=== PATIENT | female | born 1990 | race Caucasian/White ===

== ENCOUNTER 2016-11-24 09:09 | Emergency (ER) | payer OTHER ==
[~2016-11-24] VITALS: Wt 57.2 kg
[~2016-11-24 09:09] MED LIST: ACET325T33 PO; IBUP-1542 PO; NITR-58 PO; TYL500 PO
[2016-11-24] MEDS ORDERED: BACTDS PO (09:26)
[2016-11-24] MEDS ORDERED: CEPH-443 PO (09:26)
--- NOTE | 2016-11-24 09:40 | ERD ---
ER Documentation Chief Complaint Date/Time DATE: 11/24/16 TIME: 09:31 Chief Complaint right index finger swelling for a few days. no fever HPI This is a 26-year-old female who is a [employer] employee, presents with right index finger swelling and pain for 5 days. Denies any trauma. No recent history of fever, numbness or tingling. No drainage reported. ROS All systems reviewed and are negative except as per history of present illness. Medications Home Meds Active Scripts Cephalexin* (Keflex*) 500 Mg Capsule, 500 MG PO Q6 for 7 Days, #28 CAP Prov:RIGO RUSSELL 11/24/16 Sulfamethoxazole-Trimethoprim* (Bactrim* DS) 800-160 Mg Tab, 1 TAB PO BID for 7 Days, TAB Prov:RIGO RUSSELL 11/24/16 Acetaminophen* (Tylenol*) 325 Mg Tablet, 2 TAB PO Q6 Y for PAIN AND OR ELEVATED TEMP, #20 TAB Prov:MYNOR CHAPA PA-C 04/23/16 Ibuprofen* (Motrin*) 600 Mg Tab, 600 MG PO Q6H Y for PAIN AND OR ELEVATED TEMP, #30 TAB Prov:MYNOR CHAPA PA-C 04/23/16 Nitrofurantoin Monohyd Macrocr* (Macrobid*) 100 Mg Capsr, 100 MG PO BID for 7 Days, CAP Prov:MYNOR CHAPA PA-C 04/23/16 Acetaminophen* (Tylenol*) 500 Mg Tab, 500 MG PO Q4H Y for MILD PAIN LEVEL 1-3, # 20 TAB Prov:ALON WONG DO 02/02/16 Allergies Allergies: Coded Allergies: No Known Allergy (Unverified , 02/02/16) PMhx/Soc History of Surgery: No Anesthesia Reaction: No Hx Neurological Disorder: No Hx Respiratory Disorders: No Hx Cardiac Disorders: No Hx Psychiatric Problems: No Hx Miscellaneous Medical Probl: No (PT. DENIES MEDICAL AND SURGICAL HX.) Hx Alcohol Use: No Hx Substance Use: No Hx Tobacco Use: No Physical Exam Vitals Vital Signs Date Time Temp Pulse Resp B/P Pulse Ox O2 Delivery O2 Flow Rate FiO2 11/24/16 09:11 98.6 61 20 131/82 98 Physical Exam Physical Exam CONST: Well-developed, well-nourished, in no acute distress. Nontoxic in appearance. HEENT: Atraumatic. Normal conjunctiva. EOM intact. TM intact. External ear is normal. Clear oropharnyx without erythema. No uvular deviation. Moist mucous membranes. Supple neck. No meningismus. No submandibular induration. RESP: Clear to auscultation bilaterally. No wheezing. CARDIO: Regular rate and rhythm, no murmurs. ABD: Soft, non tender, non distended. Normal bowel sounds. No McBurney's point tenderness. No guarding or rigidity. No peritoneal signs. SKIN: Approximately 0.5 cm closed abscess on the right distal phalanges of the index finger with surrounding erythema. No active drainage. No petechiae or rashes. BACK: No midline or flank tenderness. EXT: Full range of motion on right index finger. No cyanosis or edema. Distal pulses equal and bilateral. NEURO: Awake and alert, appropriate for age. Procedures/MDM EMERGENCY DEPARTMENT COURSE/MEDICAL DECISION MAKING This is a 26-year-old female who comes to the emergency room secondary to right index finger abscess. Upon examination, 0.5 cm abscess was noted without drainage. I believe procedure for an incision and drainage is not warranted at this time. Patient is afebrile. My primary diagnosis is abscess. Secondary diagnosis finger pain Differential diagnoses considered but not limited to cellulitis, dermatitis, tenosynovitis, foreign body. Pt is hemodynamically stable upon reassessment. The patient was discharged for outpatient management with a prescription for Keflex and Bactrim. Patient was instructed to return in 2 days for wound recheck. The patient was advised to followup with their PMD in 1-2 days and to return to the Emergency Department if there are any new or worsening symptoms. The patient understood and agreed with the diagnosis, treatment and plan. Patient is stable for discharge at this time. Departure Diagnosis: Primary Impression: Abscess Additional Impression: Finger pain, right Condition: Stable Patient Instructions: Abscess, Antiobiotic Treatment Only Additional Instructions: Call your primary care doctor tomorrow for an appointment during the next 1-2 days. Return to the emergency department immediately should you have any new or worsening symptoms. Take all medications as directed. RIGO RUSSELL Nov 24, 2016 09:40
== END 2016-11-24 12:00 | disposition home or self-care (01) ==
LOC: E/R 09:09
DX: L02.511 Cutaneous abscess of right hand (principal)
CPT/HCPCS: 99284

== ENCOUNTER 2016-12-28 13:02 | Emergency (ER) | payer OTHER ==
[~2016-12-28] VITALS: Ht 152.4 cm; Wt 49.5 kg
[~2016-12-28 13:02] MED LIST changes: +BACTDS PO; +CEPH-443 PO
[2016-12-28 13:12] VITALS: Ht 152.4 cm; Wt 49.5 kg
[2016-12-28] MEDS ORDERED: KETOROLAC 30 MG INJ IM STA (14:08)
--- NOTE | 2016-12-28 14:42 | RADRPT ---
PROCEDURE: US venous right lower extremity CLINICAL INDICATION: Right lower extremity pain and swelling. TECHNIQUE: Multiple longitudinal and transverse images of the right lower extremity veins were obt ained with sparrow scale and color Doppler imaging. 2D grayscale imaging with compression, color Doppl er flow, and augmentation was performed. The calf veins were interrogated as well. COMPARISON: None available. FINDINGS: The right common femoral, superficial femoral, and popliteal veins are normally compressible through out. There is normal color Doppler flow within the vessels and all the vessels are augmentable. The calf veins are visualized and are equally unremarkable. IMPRESSION: 1. No evidence of a deep vein thrombosis within the right lower extremity. RPTAT: GG .Kobe Moreno MD, Date Time Electronically viewed and signed by .Kobe Moreno MD, MD on 12/28/2016 14:42 .P/
--- NOTE | 2016-12-28 15:47 | RADRPT ---
PROCEDURE: XR Right Hip. CLINICAL INDICATION: Right hip pain TECHNIQUE: AP and frog lateral views of the right hip were performed. COMPARISON: None. FINDINGS: There is normal mineralization and alignment. No fracture or osseous lesion is identified. Joint spa ines are well maintained. There is no evidence of osteophyte erosion. The soft tissues are unremarka ble. IMPRESSION: 1. Unremarkable right hip x-rays series. RPTAT: KK .Donaldo Badillo MD, MD Date Time Electronically viewed and signed by .Donaldo Badillo MD, on 12/28/2016 15:47 .B/
--- NOTE | 2016-12-28 15:48 | RADRPT ---
PROCEDURE: XR Femur. CLINICAL INDICATION: Right femur pain TECHNIQUE: 5 views of the right femur were obtained. COMPARISON: No prior studies are available for comparison. FINDINGS: There is normal mineralization and alignment. There is no evidence of acute fracture or dislocation. Limited evaluation of the joints of the right femur demonstrates no significant abnormality. The so ft tissues are unremarkable. IMPRESSION: 1. Unremarkable right femur x-ray series. RPTAT: KK .Donaldo Badillo MD, Date Time Electronically viewed and signed by .Donaldo Badillo MD, on 12/28/2016 15:48 .B/
[2016-12-28] MEDS ORDERED: IBUP400T22 PO (15:59)
[2016-12-28] MEDS ORDERED: TRAM50TA2 PO (15:59)
--- NOTE | 2017-01-21 11:34 | ERD ---
ER Documentation Chief Complaint Date/Time DATE: 01/21/17 TIME: 11:28 Chief Complaint Pt with R leg pain and mild swelling upper thigh X 4 days. no injury. HPI Pt presents complaining of right upper leg pain x 4 days with no known injury. She states there is swelling but no fever or redness. It is worse when she stands on it and better when she rests. Sjarnaldo does a lot of standing at work but has not done any excessive exercise recently. She has never experienced this before. She denies any recent trauma or being on control .She denies and chest pain or shortness of breath. She denies being . The remainder review of symptoms are negative. ROS All systems reviewed and are negative except as per history of present illness. Medications Home Meds Active Scripts Ibuprofen* (Motrin*) 400 Mg Tab, 400 MG PO Q6, #15 TAB Prov:DEEPALI ZAZUETA NP 12/28/16 Tramadol HCl (Tramadol HCl) 50 Mg Tablet, 50 MG PO Q4 Y for PAIN, #10 TAB Prov:DEEPALI ZAZUETA NP 12/28/16 Cephalexin* (Keflex*) 500 Mg Capsule, 500 MG PO Q6 for 7 Days, #28 CAP Prov:RIGO RUSSELL 11/24/16 Sulfamethoxazole-Trimethoprim* (Bactrim* DS) 800-160 Mg Tab, 1 TAB PO BID for 7 Days, TAB Prov:RIGO RUSSELL 11/24/16 Acetaminophen* (Tylenol*) 325 Mg Tablet, 2 TAB PO Q6 Y for PAIN AND OR ELEVATED TEMP, #20 TAB Prov:MYNOR CHAPA PA-C 04/23/16 Ibuprofen* (Motrin*) 600 Mg Tab, 600 MG PO Q6H Y for PAIN AND OR ELEVATED TEMP, #30 TAB Prov:MYNOR CHAPA PA-C 04/23/16 Nitrofurantoin Monohyd Macrocr* (Macrobid*) 100 Mg Capsr, 100 MG PO BID for 7 Days, CAP Prov:MYNOR CHAPA PA-C 04/23/16 Acetaminophen* (Tylenol*) 500 Mg Tab, 500 MG PO Q4H Y for MILD PAIN LEVEL 1-3, # 20 TAB Prov:ALON WONG DO 6/19/16 Allergies Allergies: Coded Allergies: No Known Allergy (Unverified , 02/02/16) PMhx/Soc Medical and Surgical Hx: pt denies Medical Hx, pt denies Surgical Hx History of Surgery: No Anesthesia Reaction: No Hx Neurological Disorder: No Hx Respiratory Disorders: No Hx Cardiac Disorders: No Hx Psychiatric Problems: No Hx Miscellaneous Medical Probl: No (PT. DENIES MEDICAL AND SURGICAL HX.) Hx Alcohol Use: No Hx Substance Use: No Hx Tobacco Use: No Smoking Status: Never smoker Physical Exam Physical Exam Const: [] Head: Atraumatic Eyes: Normal Conjunctiva ENT: Normal External Ears, Nose and Mouth. Neck: Full range of motion..~ No meningismus. Resp: Clear to auscultation bilaterally Cardio: Regular rate and rhythm, no murmurs Abd: Soft, non tender, non distended. Normal bowel sounds Skin: No petechiae or rashes Back: No midline or flank tenderness Ext: No cyanosis, or edema, pt reports pain with movement of the leg, there is not swelling or redness noted. she is neurovascular intact, negative vanita's sign Neur: Awake and alert Psych: Normal Mood and Affect Results 24 hrs Current Medications Medications (Trade) Dose Ordered Sig/Jose Route PRN Reason Start Time Stop Time Status Last Admin Dose Admin Ketorolac Tromethamine (Toradol) 30 mg ONCE STAT IM 12/28/16 14:08 12/28/16 14:10 DC 12/28/16 15:06 Procedures/MDM differential includes but is not limited to musculoskeletal pain, neuropathic pain, dvt, osteopathic pain, bursitis us reveals no dvt femur xray is unremarkable hip xray is unremarkable pt states she feels better after medications. it is felt she is stable for discharge home and outpatient followup with her primary care doctor. Departure Diagnosis: Primary Impression: Bursitis Additional Impression: Pain of right leg Condition: Stable Patient Instructions: Bursitis Additional Instructions: Call your primary care doctor TOMORROW for an appointment during the next 2-3 days.See the doctor sooner or return here if your condition worsens before your appointment time. Return to ED for any high fever, chest pain, difficulty breathing, shortness breath, wheezing, vomiting, diarrhea, abdominal pain or any new or worsening symptoms. PAOLA JUNE Jan 21, 2017 11:34
== END 2016-12-28 16:07 | disposition home or self-care (01) ==
LOC: FTE 13:02
DX: M71.9 Bursopathy, unspecified (principal)
CPT/HCPCS: 73510; 73550; 93971; J1885; 96372

== ENCOUNTER 2017-04-05 22:32 | Emergency (ER) | payer OTHER ==
[~2017-04-05] VITALS: Ht 154.9 cm; Wt 52.2 kg
[~2017-04-05 22:32] MED LIST changes: +BACITUD TOP; +IBUP400T22 PO; +OMEP20CA9 PO; +TRAM50TA2 PO
[2017-04-05 22:38] VITALS: Ht 154.9 cm; Wt 52.2 kg
[2017-04-05] MEDS ORDERED: KETOROLAC 30 MG INJ IM STA (23:29)
[2017-04-05] MEDS ORDERED: NAPR-260 PO (23:56)
[2017-04-05] MEDS ORDERED: CYCL-319 PO (23:56)
--- NOTE | 2017-04-06 01:00 | ERD ---
ER Documentation Chief Complaint Date/Time DATE: 04/06/17 TIME: 00:57 Chief Complaint RT SD NECK PAIN SINCE SAT. DENIES TRAUMA. WAS RX TRAMADOL BY . MARISELA This is a 27-year-old female presents emergency department today complaining of right-sided neck pain for the past 4 days. States that she saw her doctor a couple of days ago and was given tramadol with limited improvement in symptoms. 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 States she has pain with turning her head to the side. States it is causing her to have occasional headaches. Denies any sore throat, fevers or chills. ROS All systems reviewed and are negative except as per history of present illness. Medications Home Meds Active Scripts Cyclobenzaprine Hcl* (Cyclobenzaprine Hcl*) 10 Mg Tablet, 10 MG PO QHS, #7 TAB Prov:FARIDEH MORGAN PA-C 04/05/17 Naproxen* (Naprosyn*) 500 Mg Tablet, 500 MG PO BID Y for PAIN AND/OR INFLAMMATION, #30 TAB Prov:FARIDEH MORGAN PA-C 04/05/17 Ibuprofen* (Motrin*) 400 Mg Tab, 400 MG PO Q6, #15 TAB Prov:DEEPALI ZAZUETA NP 12/28/16 Tramadol HCl (Tramadol HCl) 50 Mg Tablet, 50 MG PO Q4 Y for PAIN, #10 TAB Prov:DEEPALI ZAZUETA NP 12/28/16 Cephalexin* (Keflex*) 500 Mg Capsule, 500 MG PO Q6 for 7 Days, #28 CAP Prov:RIGO RUSSELL 11/24/16 Sulfamethoxazole-Trimethoprim* (Bactrim* DS) 800-160 Mg Tab, 1 TAB PO BID for 7 Days, TAB Prov:RIGO RUSSELL 11/24/16 Acetaminophen* (Tylenol*) 325 Mg Tablet, 2 TAB PO Q6 Y for PAIN AND OR ELEVATED TEMP, #20 TAB Prov:MYNOR CHAPA PA-C 04/23/16 Ibuprofen* (Motrin*) 600 Mg Tab, 600 MG PO Q6H Y for PAIN AND OR ELEVATED TEMP, #30 TAB Prov:MYNOR CHAPA PA-C 9/8/16 Nitrofurantoin Monohyd Macrocr* (Macrobid*) 100 Mg Capsr, 100 MG PO BID for 7 Days, CAP Prov:MYNOR CHAPA PA-C 04/23/16 Acetaminophen* (Tylenol*) 500 Mg Tab, 500 MG PO Q4H Y for MILD PAIN LEVEL 1-3, # 20 TAB Prov:ALON WONG DO 02/02/16 Allergies Allergies: Coded Allergies: No Known Allergy (Unverified , 04/05/17) PMhx/Soc Medical and Surgical Hx: pt denies Medical Hx, pt denies Surgical Hx History of Surgery: No Anesthesia Reaction: No Hx Neurological Disorder: No Hx Respiratory Disorders: No Hx Cardiac Disorders: No Hx Psychiatric Problems: No Hx Miscellaneous Medical Probl: No (PT. DENIES MEDICAL AND SURGICAL HX.) Hx Alcohol Use: No Hx Substance Use: No Hx Tobacco Use: No Smoking Status: Never smoker Physical Exam Vitals Vital Signs Date Time Temp Pulse Resp B/P Pulse Ox O2 Delivery O2 Flow Rate FiO2 04/05/17 22:38 96.9 73 18 138/76 100 Physical Exam Const: No acute distress Head: Atraumatic Eyes: Normal Conjunctiva ENT: Ears TMs normal. Nose no drainage. Throat erythema no exudate Neck: Full range of motion with pain turning head to the left..~ No meningismus. No midline tenderness. Right-sided paraspinal tenderness. Full active range of motion of right arm. Pulses 2+ per distal neurovascularly intact Resp: Clear to auscultation bilaterally Cardio: Regular rate and rhythm, no murmurs Skin: No petechiae or rashes Neur: Awake and alert Psych: Normal Mood and Affect Results 24 hrs Current Medications Medications (Trade) Dose Ordered Sig/Jose Route PRN Reason Start Time Stop Time Status Last Admin Dose Admin Ketorolac Tromethamine (Toradol) 30 mg ONCE STAT IM 04/05/17 23:29 04/05/17 23:30 DC 04/05/17 23:37 Procedures/MDM This 27-year-old female presents the emergency department today complaining some right-sided neck pain for the past 4 days. Patient did follow-up with her primary care doctor and was given tramadol with no improvement in symptoms. On physical exam patient has no midline tenderness. Do not feel that she requires imaging at this time. Low suspicion for cauda equina or abscess, acute fracture dislocation. Her pain appears to be located on the right side of her paraspinal muscles and lower trapezius muscles. Patient has evidence of muscle spasm and tightness. Her symptoms at this time is consistent with muscle strain versus sprain versus muscle spasm. No evidence of torticollis at this time. No evidence of throat involvement. Patient was given Toradol here in the emergency department. She is instructed to continue taking her tramadol as prescribed. Also give the patient a prescription for Naprosyn and Flexeril. I also instructed the patient to apply ice and heat intermittently throughout the day. She was also instructed in stretching exercises. I did offer the patient a work note as she was here in the emergency department quite late however patient indicated that she did want to go to work. At this time the patient is stable for discharge and outpatient management. Patient should follow up with their PCP in the next 1-2 days. They may return to the emergency department sooner for any persistent or worsening of symptoms. Patient understood and agreed with the plan. Departure Diagnosis: Primary Impression: Neck pain Condition: Fair Patient Instructions: Muscle Spasm, Neck Pain, No Trauma Referrals: CHANDA SESAY MD (PCP) Additional Instructions: Call your primary care doctor TOMORROW for an appointment during the next 1-2 days.See the doctor sooner or return here if your condition worsens before your appointment time. COntinue taking your tramadol that you were prescribed for severe pain otherwise take Naprosyn or Tylenol or Motrin Take Flexeril for muscle spasms. Take only at night and do not drive while taking this medication Apply ice and heat intermittently for pain Do stretching exercises that you are instructed in FARIDEH MORGAN PA-C Apr 06, 2017 01:00
== END 2017-04-06 00:04 | disposition home or self-care (01) ==
LOC: FTE 22:32
DX: M54.2 Cervicalgia (principal)
CPT/HCPCS: 96372; 99284; J1885

== ENCOUNTER 2017-06-10 12:01 | Emergency (ER) | payer OTHER ==
[~2017-06-10] VITALS: Ht 152.4 cm; Wt 50.5 kg
[~2017-06-10 12:01] MED LIST changes: -BACITUD TOP; +CYCL-319 PO; +NAPR-260 PO; -OMEP20CA9 PO
[2017-06-10 12:04] VITALS: Ht 152.4 cm; Wt 50.5 kg
--- NOTE | 2017-06-10 14:28 | ERD ---
ER Documentation Chief Complaint Chief Complaint loss appetite, insomnia, feels faint at times x 4 weeks HPI 27-year-old female is complaining of loss of appetite, insomnia, loss of interest, and weakness 4 weeks. Patient stated that she was seen by PCP 3 weeks ago, and was diagnosed with depression. PCP has prescribed buspirone for her, but she only took it twice. Patient states that she has a lot of stress from work. She had not yet seek counseling. Denies fever or chills. Denies syncope. Denies suicidal or homicidal ideations. ROS All systems reviewed and are negative except as per history of present illness. Medications Home Meds Active Scripts Cyclobenzaprine Hcl* (Cyclobenzaprine Hcl*) 10 Mg Tablet, 10 MG PO QHS, #7 TAB Prov:FARIDEH MORGAN PA-C 04/05/17 Naproxen* (Naprosyn*) 500 Mg Tablet, 500 MG PO BID Y for PAIN AND/OR INFLAMMATION, #30 TAB Prov:FARIDEH MORGAN PA-C 04/05/17 Ibuprofen* (Motrin*) 400 Mg Tab, 400 MG PO Q6, #15 TAB Prov:DEEPALI ZAZUETA NP 12/28/16 Tramadol HCl (Tramadol HCl) 50 Mg Tablet, 50 MG PO Q4 Y for PAIN, #10 TAB Prov:DEEPALI ZAZUETA NP 12/28/16 Cephalexin* (Keflex*) 500 Mg Capsule, 500 MG PO Q6 for 7 Days, #28 CAP Prov:RIGO RUSSELL 11/24/16 Sulfamethoxazole-Trimethoprim* (Bactrim* DS) 800-160 Mg Tab, 1 TAB PO BID for 7 Days, TAB Prov:RIGO RUSSELL 11/24/16 Acetaminophen* (Tylenol*) 325 Mg Tablet, 2 TAB PO Q6 Y for PAIN AND OR ELEVATED TEMP, #20 TAB Prov:MYNOR CHAPA PA-C 04/23/16 Ibuprofen* (Motrin*) 600 Mg Tab, 600 MG PO Q6H Y for PAIN AND OR ELEVATED TEMP, #30 TAB Prov:MYNOR CHAPA PA-C 04/23/16 Nitrofurantoin Monohyd Macrocr* (Macrobid*) 100 Mg Capsr, 100 MG PO BID for 7 Days, CAP Prov:MYNOR CHAPA PA-C 04/23/16 Acetaminophen* (Tylenol*) 500 Mg Tab, 500 MG PO Q4H Y for MILD PAIN LEVEL 1-3, # 20 TAB Prov:ALON WONG DO 02/02/16 Allergies Allergies: Coded Allergies: No Known Allergy (Unverified , 04/05/17) PMhx/Soc Medical and Surgical Hx: pt denies Medical Hx, pt denies Surgical Hx History of Surgery: No Anesthesia Reaction: No Hx Neurological Disorder: No Hx Respiratory Disorders: No Hx Cardiac Disorders: No Hx Psychiatric Problems: No Hx Miscellaneous Medical Probl: No (PT. DENIES MEDICAL AND SURGICAL HX.) Hx Alcohol Use: No Hx Substance Use: No Hx Tobacco Use: No Physical Exam Vitals Vital Signs Date Time Temp Pulse Resp B/P Pulse Ox O2 Delivery O2 Flow Rate FiO2 06/10/17 12:04 98.3 88 18 122/82 97 Physical Exam General: Well-developed, well-nourished, conscious and coherent, in no distress Skin: Warm and dry without rash, good texture and turgor Head: Normocephalic without evidence of trauma Eyes: Sclera and conjunctivae normal; pupils equal, round, and reactive to light; extraocular movements are intact Chest: Normal AP diameter. Good expansion without retractions. Nontender. Lungs are clear to auscultate bilaterally with good tidal volume Heart: Regular rate and rhythm. No murmur, rub, or gallops heard Extremities: Full range of motion. Good strength bilaterally. No clubbing, cyanosis, or edema. Peripheral pulses are intact. Sensation intact Neuro: Alert and oriented 4, GCS 15. Cranial nerves grossly intact. Motor and sensory exams nonfocal. Moves all extremities. Speech clear. Gait normal Psych: Depressed affect. Procedures/MDM Well-appearing 27-year-old female presented ED with symptoms of depression. Patient denies any suicidal homicidal ideations. I do not feel patient is appropriate for involuntary hold. She was given prescription of buspirone by her PCP, but she had not been taking it as prescribed. Education provided to patient on how to take antidepressant medications, and nonpharmaceutical interventions for depression. Patient advised to take the risperidone daily as prescribed, and follow-up with her PCP. Patient also advised to request for a psychologist, or psychotherapist referral. Patient appears well, stable for discharge and outpatient management. Medical decision making shared with patient and family. Education provided to patient and family. Patient and family expressed understanding of the plan. Medications on discharge: None. Follow-up: Primary care provider in 2-3 days or return to ED if worse. Disclaimer: Inadvertent spelling and grammatical errors are likely due to EHR/ dictation software use and do not reflect on the overall quality of patient care. Also, please note that the electronic time recorded on this note does not necessarily reflect the actual time of the patient encounter. Departure Diagnosis: Primary Impression: Depressed Condition: Stable Patient Instructions: Depression Additional Instructions: Call your primary care doctor TOMORROW for an appointment during the next 2-3 days.See the doctor sooner or return here if your condition worsens before your appointment time. Ask your doctor to check your thyroid level. Ask your doctor for a referral to psychologist/therapist. RUTH ALEJANDRE NP Jun 10, 2017 14:28
== END 2017-06-10 13:20 | disposition home or self-care (01) ==
LOC: FTE 12:01
DX: F32.9 Major depressive disorder, single episode, unspecified (principal)
CPT/HCPCS: 99282

== ENCOUNTER 2017-08-18 13:29 | Emergency (ER) | END 2017-08-18 13:30 | disposition home or self-care (01) ==